=== PATIENT | male | born 1980 | race Caucasian/White ===

== ENCOUNTER 2016-12-02 02:47 | Outpatient (CLI) | payer OTHER | END 2016-12-02 02:48 | disposition critical access hospital (66) | LOC: EMS 02:47 | PROVIDERS: ATTEND Surgery | DX: S51.811A Laceration without foreign body of right forearm, initial encounter (principal); X78.9XXA Intentional self-harm by unspecified sharp object, initial encounter | CPT/HCPCS: A0425; A0429 ==

== ENCOUNTER 2016-12-02 03:03 | Emergency (ER) | payer OTHER ==
[2016-12-02 03:24] LABS: BASOPHILS % (AUTO) 0.4 %; EOSINOPHILS # (AUTO) 0.1 10^3/uL (0.0-0.7); EOSINOPHILS % (AUTO) 1.6 %; HCT - HEMATOCRIT 43.5 % (42.0-52.0); HGB - HEMOGLOBIN 14.9 g/dL (14.0-18.0); LYMPHOCYTES # (AUTO) 2.6 10^3/uL (1.5-3.5); LYMPHOCYTES % (AUTO) 32.7 %; MEAN CORPUSCULAR HEMOGLOBIN 30.1 pg (27.0-31.0); MEAN CORPUSCULAR HGB CONC 34.3 g/dL (32.0-36.0); MEAN CORPUSCULAR VOLUME 87.9 fL (80.0-94.0); MEAN PLATELET VOLUME 8.5 fL (7.4-11.4); MONOCYTES # (AUTO) 0.6 10^3/uL (0.0-1.0); MONOCYTES % (AUTO) 6.9 %; NEUTROPHILS # (AUTO) 4.7 10^3/uL (1.5-6.6); NEUTROPHILS % (AUTO) 58.4 %; RED BLOOD COUNT 4.95 10^6/uL (4.70-6.10); RED CELL DISTRIBUTION WIDTH 13.4 % (12.0-15.0); UNCORRECTED WHITE BLOOD COUNT 8.1 x10^3/uL; WHITE BLOOD COUNT 8.1 x10^3/uL (4.8-10.8)
[2016-12-02 03:27] LABS: BILIRUBIN,URINE NEGATIVE (NEGATIVE)
[2016-12-02 03:28] LABS: UA CHARGE (STRIP ONLY) YES; UR CULTURE IF IND NOT INDICATED
[2016-12-02 03:38] LABS: ACETAMINOPHEN < 10 ug/mL (10-30); ALBUMIN/GLOBULIN RATIO 1.3 (1.0-2.2); BILIRUBIN,TOTAL 0.5 mg/dL (0.2-1.0); BUN - BLOOD UREA NITROGEN 11 mg/dL (6-20); CALCIUM 9.2 mg/dL (8.5-10.3); CARBON DIOXIDE - CO2 21 mmol/L (21-32); CHLORIDE 105 mmol/L (101-111); CREATININE 0.9 mg/dL (0.6-1.2); GFR - MDRD 95 (>89); GLUCOSE 104 mg/dL (70-100); LIPASE 31 U/L (22-51); POTASSIUM 3.7 mmol/L (3.5-5.0); SALICYLATE < 6.0 mg/dL; SODIUM 141 mmol/L (135-145); TOTAL PROTEIN 8.1 g/dL (6.7-8.2)
--- NOTE | 2016-12-02 04:02 | ED Physician Documentation ---
PD HPI MHE - Stated complaint Stated Complaint: ARM LACS - Chief complaint Chief Complaint: MHE - History obtained from History obtained from: Patient, EMS - History of Present Illness Primary symptom: Suicidal ideation, Self harm - cut, Aggressive behavior Timing - onset: Today Contributing factors: Substance abuse - ETOH Similar symptoms before: Work up / diagnostics Recently seen: Not recently seen - Additional information Additional information: Patient is a 36 year old male with a history of depression and anxiety who is presenting to the emergency department for depression, agitation and superficial cutting of his arm. According to patient and ems patient cut his arm multiple times then walked out of his house. police and ems was called. Patient was brought to the emergency department. patient states that he has been drinking and that it is just a very bad day, the worst day, but doesnt want to elaborate. Patient states that things have been messed up since the [facility] [place] PD PAST MEDICAL HISTORY - Past Medical History Past Medical History: Yes Cardiovascular: Hypertension Respiratory: None Neuro: None Endocrine/Autoimmune: None GI: None : None HEENT: None Psych: Post traumatic stress disorder Musculoskeletal: None Derm: None - Past Surgical History Past Surgical History: No - Present Medications Home Medications: Ambulatory Orders Medication Instructions Recorded Confirmed Divalproex Sodium [Depakote ER] 500 mg PO DAILY 12/02/16 12/02/16 Prazosin [Minipress] 1 mg PO DAILY 12/02/16 12/02/16 Venlafaxine HCl [Effexor Xr] 150 mg PO DAILY 12/02/16 12/02/16 - Allergies Allergies/Adverse Reactions: Allergies Allergy/AdvReac Type Severity Reaction Status Date / Time sertraline HCl * Allergy Itching Verified 12/02/16 03:15 [From Zoloft] - Social History Does the pt smoke?: No Smoking Status: Never smoker Does the pt drink ETOH?: Yes Does the pt have substance abuse?: No - Immunizations Immunizations are current?: Yes PD ED PE NORMAL - Vitals Vital signs reviewed: Yes - General General: Alert and oriented X 3 - HEENT HEENT: Atraumatic, PERRL - Neck Neck: Supple, no meningeal sign - Cardiac Cardiac: RRR, No murmur - Respiratory Respiratory: No respiratory distress - Abdomen Abdomen: Non distended - Derm Derm: Normal color PD ED PE EXPANDED - Extremities Extremities: Right arm (three superficial cuts on the left arm) - Psych Psych: Depressed, Suicidal, Tearful Results - Vitals Vitals: Vital Signs - 24 hr 12/02/16 12/02/16 03:10 04:18 Temperature 37.2 C Heart Rate 98 108 H Respiratory 16 18 Rate Blood Pressure 144/110 H 141/101 H O2 Saturation 98 96 Oxygen O2 Source Room air - Labs Labs: Laboratory Tests 12/02/16 12/02/16 12/02/16 03:10 03:10 03:10 WBC 8.1 RBC 4.95 Hgb 14.9 Hct 43.5 MCV 87.9 MCH 30.1 MCHC 34.3 RDW 13.4 Plt Count 217 MPV 8.5 Neut # 4.7 Lymph # 2.6 [place] # 0.6 Eos # 0.1 Baso # 0.0 Absolute Nucleated RBC 0.00 Nucleated RBC % 0.0 Sodium 141 Potassium 3.7 Chloride 105 Carbon Dioxide 21 Anion Gap 15.0 H BUN 11 Creatinine 0.9 Estimated GFR (MDRD) 95 Glucose 104 H Calcium 9.2 Total Bilirubin 0.5 AST 22 ALT 19 Alkaline Phosphatase 59 Total Protein 8.1 Albumin 4.6 Globulin 3.5 Albumin/Globulin Ratio 1.3 Lipase 31 TSH 0.75 Urine Color Urine Clarity Urine pH Ur Specific [place] Urine Protein Urine Glucose (UA) Urine Ketones Urine Occult Blood Urine Nitrite Urine Bilirubin Urine Urobilinogen Ur Leukocyte Esterase Ur Microscopic Review Urine Culture Comments Salicylates < 6.0 Urine Opiates Screen Ur Oxycodone Screen Urine Methadone Screen Ur Propoxyphene Screen Acetaminophen < 10 L Ur Barbiturates Screen Ur Tricyclics Screen Ur Phencyclidine Scrn Ur Amphetamine Screen U Methamphetamines Scrn U Benzodiazepines Scrn Urine Cocaine Screen U Cannabinoids Screen Ethyl Alcohol 123.5 12/02/16 03:15 WBC RBC Hgb Hct MCV MCH MCHC RDW Plt Count MPV Neut # Lymph # [place] # Eos # Baso # Absolute Nucleated RBC Nucleated RBC % Sodium Potassium Chloride Carbon Dioxide Anion Gap BUN Creatinine Estimated GFR (MDRD) Glucose Calcium Total Bilirubin AST ALT Alkaline Phosphatase Total Protein Albumin Globulin Albumin/Globulin Ratio Lipase TSH Urine Color YELLOW Urine Clarity CLEAR Urine pH 6.0 Ur Specific [place] <=1.005 Urine Protein NEGATIVE Urine Glucose (UA) NEGATIVE Urine Ketones NEGATIVE Urine Occult Blood NEGATIVE Urine Nitrite NEGATIVE Urine Bilirubin NEGATIVE Urine Urobilinogen 0.2 (NORMAL) Ur Leukocyte Esterase NEGATIVE Ur Microscopic Review NOT INDICATED Urine Culture Comments NOT INDICATED Salicylates Urine Opiates Screen NEGATIVE Ur Oxycodone Screen NEGATIVE Urine Methadone Screen NEGATIVE Ur Propoxyphene Screen NEGATIVE Acetaminophen Ur Barbiturates Screen NEGATIVE Ur Tricyclics Screen NEGATIVE Ur Phencyclidine Scrn NEGATIVE Ur Amphetamine Screen NEGATIVE U Methamphetamines Scrn NEGATIVE U Benzodiazepines Scrn NEGATIVE Urine Cocaine Screen NEGATIVE U Cannabinoids Screen POSITIVE H Ethyl Alcohol PD MEDICAL DECISION MAKING - ED course Complexity details: reviewed old records, reviewed results, re-evaluated patient , considered differential, d/w patient ED course: Patient was seen and examined at bedside. Patient was moderately agitated. patient calmed down and was able to give a urine sample and labs were drawn. Patient did get agitated again and walked out of the ER. Patient was found and brought back to the emergency department. patient was treated with 0.5mg of ativan. Patient calmed down and stated that he wanted to speak with someone. Patient was medically cleared and signed over to Dr. Gayle pending social work evaluation and disposition.
[2016-12-02] MEDS ORDERED: LORazepam 0.5 MG TABLET PO STA ×2 (04:11→18:58)
[2016-12-02] MEDS ORDERED: LORazepam 0.5 MG TABLET ONE (04:18)
[2016-12-02 11:02] VITALS: BP 114/77
--- NOTE | 2016-12-02 18:59 | ED Physician Documentation ---
ED Addendum - Addendum Addendum: 12/02/16 18:59 Per the social work nurse he was initially willing to go to [place], the [facility] did not have staff to accept him tonight. After arrangements were made for that the patient changed his mind, now [facility] point. 12/02/16 19:34 Patient change his mind after his arrived and wanted to go home. He was personally reassessed and says he is not suicidal, has no plan. The plans to watch him at home and [facility]. Given the impression of the social work nurse he did sign out AGAINST MEDICAL ADVICE, however I do feel after my evaluation that he is likely safe tonight and has contracted for safety.
== END 2016-12-02 19:40 | disposition left against medical advice (07) ==
LOC: ED 03:03
DX: F32.9 Major depressive disorder, single episode, unspecified (principal); F41.9 Anxiety disorder, unspecified; R45.1 Restlessness and agitation; S41.112A Laceration without foreign body of left upper arm, initial encounter; X78.9XXA Intentional self-harm by unspecified sharp object, initial encounter; Y92.009 Unspecified place in unspecified non-institutional (private) residence as the place of occurrence of the external cause; F10.10 Alcohol abuse, uncomplicated; F43.10 Post-traumatic stress disorder, unspecified; I10 Essential (primary) hypertension; Z53.20 Procedure and treatment not carried out because of patient's decision for unspecified reasons
CPT/HCPCS: 36415; 80053; 80306; 80307; 80320; 80329; 81003; 83690; 84443; 85025; 99283; A9270; 81001; 87086

== ENCOUNTER 2017-03-08 05:14 | Emergency (ER) | payer OTHER ==
--- NOTE | 2017-03-08 05:20 | ED Physician Documentation ---
PD HPI MHE - Stated complaint Stated Complaint: MHE - Chief complaint Chief Complaint: MHE - History obtained from History obtained from: Patient, Police - History of Present Illness Primary symptom: Suicidal ideation, Depression, Out of meds Timing - onset: Today Contributing factors: Sig other, Substance abuse - ETOH, Off meds Similar symptoms before: Work up / diagnostics, Treatment Recently seen: Not recently seen - Additional information Additional information: Patient is a 37 year old male with a history of depression who is presenting to the emergency department for depression and suicidal ideation. patient drank a few drinks tonight and got in an argument with his significant other . patient states that he was going to hurt himself by using a knife so police were called. when police came he was cooperative and gave up his knife and came in voluntarily. Patient states that [facility] so he has not had his prozac for months. Review of Systems Unable to obtain: Intoxicated PD PAST MEDICAL HISTORY - Past Medical History Cardiovascular: Hypertension Respiratory: None Neuro: None Endocrine/Autoimmune: None GI: None : None HEENT: None Psych: Post traumatic stress disorder Musculoskeletal: None Derm: None - Past Surgical History Past Surgical History: No - Present Medications Home Medications: Ambulatory Orders Medication Instructions Recorded Confirmed Divalproex Sodium [Depakote ER] 500 mg PO DAILY 12/02/16 03/08/17 Prazosin [Minipress] 1 mg PO DAILY 12/02/16 03/08/17 FLUoxetine [PROzac] 40 mg ORAL DAILY 03/08/17 03/08/17 Quetiapine Fumarate [Quetiapine 200 mg ORAL DAILY 03/08/17 03/08/17 Fumarate ER] - Allergies Allergies/Adverse Reactions: Allergies Allergy/AdvReac Type Severity Reaction Status Date / Time sertraline HCl * Allergy Itching Verified 03/08/17 05:16 [From Zoloft] - Social History Does the pt smoke?: No Smoking Status: Never smoker Does the pt drink ETOH?: Yes Does the pt have substance abuse?: No - Immunizations Immunizations are current?: Yes PD ED PE NORMAL - HEENT HEENT: Atraumatic, PERRL - Neck Neck: Supple, no meningeal sign - Cardiac Cardiac: RRR - Respiratory Respiratory: No respiratory distress - Abdomen Abdomen: Non distended - Derm Derm: Normal color, No rash - Extremities Extremities: No deformity, Normal ROM s pain, No calf tenderness / cord - Neuro Neuro: No motor deficit, Normal speech Eye Opening: Spontaneous Motor: Obeys Commands Verbal: Oriented GCS Score: 15 PD ED PE EXPANDED - General General: Alert - Psych Psych: Intoxicated / AOB, Depressed, Suicidal, Tearful Results - Vitals Vitals: Vital Signs - 24 hr 03/08/17 05:11 Temperature 36.6 C Heart Rate 104 H Respiratory 18 Rate Blood Pressure 125/79 O2 Saturation 96 Oxygen O2 Source Room air - Labs Labs: Laboratory Tests 03/08/17 03/08/17 03/08/17 05:23 05:39 05:39 WBC 5.1 RBC 4.75 Hgb 14.1 Hct 42.6 MCV 89.6 MCH 29.6 MCHC 33.0 RDW 13.9 Plt Count 251 MPV 7.9 Neut # 3.1 Lymph # 1.5 [place] # 0.4 Eos # 0.1 Baso # 0.0 Absolute Nucleated RBC 0.01 Nucleated RBC % 0.1 Sodium 137 Potassium 3.6 Chloride 104 Carbon Dioxide 21 Anion Gap 12.0 BUN 16 Creatinine 0.8 Estimated GFR (MDRD) 108 Glucose 106 H Calcium 9.1 Total Bilirubin 0.3 AST 26 ALT 27 Alkaline Phosphatase 67 Total Protein 7.8 Albumin 4.6 Globulin 3.2 Albumin/Globulin Ratio 1.4 Lipase 22 TSH Urine Opiates Screen NEGATIVE Ur Oxycodone Screen NEGATIVE Urine Methadone Screen NEGATIVE Ur Propoxyphene Screen NEGATIVE Ur Barbiturates Screen NEGATIVE Ur Tricyclics Screen NEGATIVE Ur Phencyclidine Scrn NEGATIVE Ur Amphetamine Screen NEGATIVE U Methamphetamines Scrn NEGATIVE U Benzodiazepines Scrn NEGATIVE Urine Cocaine Screen NEGATIVE U Cannabinoids Screen NEGATIVE Ethyl Alcohol 111.0 03/08/17 05:39 WBC RBC Hgb Hct MCV MCH MCHC RDW Plt Count MPV Neut # Lymph # [place] # Eos # Baso # Absolute Nucleated RBC Nucleated RBC % Sodium Potassium Chloride Carbon Dioxide Anion Gap BUN Creatinine Estimated GFR (MDRD) Glucose Calcium Total Bilirubin AST ALT Alkaline Phosphatase Total Protein Albumin Globulin Albumin/Globulin Ratio Lipase TSH 0.83 Urine Opiates Screen Ur Oxycodone Screen Urine Methadone Screen Ur Propoxyphene Screen Ur Barbiturates Screen Ur Tricyclics Screen Ur Phencyclidine Scrn Ur Amphetamine Screen U Methamphetamines Scrn U Benzodiazepines Scrn Urine Cocaine Screen U Cannabinoids Screen Ethyl Alcohol PD MEDICAL DECISION MAKING - ED course Complexity details: reviewed old records, reviewed results, re-evaluated patient , considered differential, d/w patient ED course: Patient was seen and examined at bedside. patient was cooperative but tearful and agitated. labs were drawn and urine was collected. patient was treated with zyprexa 5mg. patient was voluntary. Patient was signed over to the morning team pending social work and disposition. Departure - Departure Clinical Impression: Depression, Alcoholic intoxication Condition: Stable Instructions: ED Stress React
[2017-03-08 05:27] LABS: MUDS CUTOFF CONCENTRATIONS CUTOFF CONC BELOW:
[2017-03-08] MEDS ORDERED: OLANZapine ODT 5 MG TABLET TL ONE (05:31)
[2017-03-08 05:43] LABS: AMPHETAMINE SCREEN,URINE NEGATIVE (NEGATIVE); BENZODIAZEPINES SCREEN, URINE NEGATIVE (NEGATIVE); COCAINE SCREEN URINE NEGATIVE (NEGATIVE); METHADONE SCREEN, URINE NEGATIVE (NEGATIVE); METHAMPHETAMINES SCREEN, URINE NEGATIVE (NEGATIVE); OPIATE SCREEN, URINE NEGATIVE (NEGATIVE); OXYCODONE SCREEN, URINE NEGATIVE (NEGATIVE); PROPOXYPHENE SCREEN, URINE NEGATIVE (NEGATIVE); TRICYCLIC ANTIDEPRESSANT,URINE NEGATIVE (NEGATIVE)
[2017-03-08 05:45] LABS: BASOPHILS % (AUTO) 0.5 %; EOSINOPHILS # (AUTO) 0.1 10^3/uL (0.0-0.7); EOSINOPHILS % (AUTO) 1.1 %; HGB - HEMOGLOBIN 14.1 g/dL (14.0-18.0); LYMPHOCYTES # (AUTO) 1.5 10^3/uL (1.5-3.5); LYMPHOCYTES % (AUTO) 29.6 %; MEAN CORPUSCULAR HEMOGLOBIN 29.6 pg (27.0-31.0); MEAN CORPUSCULAR VOLUME 89.6 fL (80.0-94.0); MEAN PLATELET VOLUME 7.9 fL (7.4-11.4); MONOCYTES # (AUTO) 0.4 10^3/uL (0.0-1.0); MONOCYTES % (AUTO) 7.2 %; NEUTROPHILS # (AUTO) 3.1 10^3/uL (1.5-6.6); NEUTROPHILS % (AUTO) 61.6 %; PLT - PLATELET COUNT 251 10^3/uL (130-450); RED BLOOD COUNT 4.75 10^6/uL (4.70-6.10); RED CELL DISTRIBUTION WIDTH 13.9 % (12.0-15.0); WHITE BLOOD COUNT 5.1 x10^3/uL (4.8-10.8)
[2017-03-08 05:59] LABS: ALBUMIN 4.6 g/dL (3.2-5.5); ALBUMIN/GLOBULIN RATIO 1.4 (1.0-2.2); BILIRUBIN,TOTAL 0.3 mg/dL (0.2-1.0); CALCIUM 9.1 mg/dL (8.5-10.3); CREATININE 0.8 mg/dL (0.6-1.2); TOTAL PROTEIN 7.8 g/dL (6.7-8.2)
--- NOTE | 2017-03-08 10:46 | ED Physician Documentation ---
PD HPI MHE - Stated complaint Stated Complaint: MHE - Chief complaint Chief Complaint: MHE PD PAST MEDICAL HISTORY - Past Medical History Past Medical History: Yes Cardiovascular: Hypertension Respiratory: None Neuro: None Endocrine/Autoimmune: None GI: None : None HEENT: None Psych: Post traumatic stress disorder Musculoskeletal: None Derm: None - Past Surgical History Past Surgical History: No - Present Medications Home Medications: Ambulatory Orders Medication Instructions Recorded Confirmed Divalproex Sodium [Depakote ER] 500 mg PO DAILY 12/02/16 03/08/17 Prazosin [Minipress] 1 mg PO DAILY 12/02/16 03/08/17 FLUoxetine [PROzac] 10 mg PO DAILY #7 capsule 03/08/17 FLUoxetine [PROzac] 40 mg ORAL DAILY 03/08/17 03/08/17 Quetiapine Fumarate [Quetiapine 200 mg ORAL DAILY 03/08/17 03/08/17 Fumarate ER] - Allergies Allergies/Adverse Reactions: Allergies Allergy/AdvReac Type Severity Reaction Status Date / Time sertraline HCl * Allergy Itching Verified 03/08/17 05:16 [From Zoloft] - Social History Does the pt smoke?: No Smoking Status: Never smoker Does the pt drink ETOH?: Yes Does the pt have substance abuse?: No - Immunizations Immunizations are current?: Yes - POLST Patient has POLST: No Results - Vitals Vitals: Oxygen O2 Source Room air - Labs Labs: Laboratory Tests 03/08/17 03/08/17 03/08/17 05:23 05:39 05:39 WBC 5.1 RBC 4.75 Hgb 14.1 Hct 42.6 MCV 89.6 MCH 29.6 MCHC 33.0 RDW 13.9 Plt Count 251 MPV 7.9 Neut # 3.1 Lymph # 1.5 [place] # 0.4 Eos # 0.1 Baso # 0.0 Absolute Nucleated RBC 0.01 Nucleated RBC % 0.1 Sodium 137 Potassium 3.6 Chloride 104 Carbon Dioxide 21 Anion Gap 12.0 BUN 16 Creatinine 0.8 Estimated GFR (MDRD) 108 Glucose 106 H Calcium 9.1 Total Bilirubin 0.3 AST 26 ALT 27 Alkaline Phosphatase 67 Total Protein 7.8 Albumin 4.6 Globulin 3.2 Albumin/Globulin Ratio 1.4 Lipase 22 TSH Urine Opiates Screen NEGATIVE Ur Oxycodone Screen NEGATIVE Urine Methadone Screen NEGATIVE Ur Propoxyphene Screen NEGATIVE Ur Barbiturates Screen NEGATIVE Ur Tricyclics Screen NEGATIVE Ur Phencyclidine Scrn NEGATIVE Ur Amphetamine Screen NEGATIVE U Methamphetamines Scrn NEGATIVE U Benzodiazepines Scrn NEGATIVE Urine Cocaine Screen NEGATIVE U Cannabinoids Screen NEGATIVE Ethyl Alcohol 111.0 03/08/17 03/08/17 05:39 10:34 WBC RBC Hgb Hct MCV MCH MCHC RDW Plt Count MPV Neut # Lymph # [place] # Eos # Baso # Absolute Nucleated RBC Nucleated RBC % Sodium Potassium Chloride Carbon Dioxide Anion Gap BUN Creatinine Estimated GFR (MDRD) Glucose Calcium Total Bilirubin AST ALT Alkaline Phosphatase Total Protein Albumin Globulin Albumin/Globulin Ratio Lipase TSH 0.83 Urine Opiates Screen Ur Oxycodone Screen Urine Methadone Screen Ur Propoxyphene Screen Ur Barbiturates Screen Ur Tricyclics Screen Ur Phencyclidine Scrn Ur Amphetamine Screen U Methamphetamines Scrn U Benzodiazepines Scrn Urine Cocaine Screen U Cannabinoids Screen Ethyl Alcohol < 5.0 PD MEDICAL DECISION MAKING - ED course Complexity details: re-evaluated patient ED course: The patient's care was signed out to me at change of shift pending evaluation by medical billing supervisor. Please see Dr. Love's report for the patient's initial presentation and evaluation. commissary worker was able to arrange for outpatient follow-up for the patient. He is being discharged to the crisis bed, with prescription for fluoxetine, one weeks supply. Departure - Departure Disposition: 01 Home, Self Care Clinical Impression: Depression, Alcoholic intoxication Condition: Stable Instructions: ED Stress React Follow-Up: Margot Azar PA [Physician No Access] - Prescriptions: FLUoxetine [PROzac] 10 mg PO DAILY #7 capsule Comments: Follow up with your case advocate as per the medical billing supervisor. Refrain from alcohol. Take Prozac daily as prescribed. Return to the emergency department if you develop increasing suicidal ideation, or otherwise worsening symptoms. Discharge Date/Time: 03/08/17 11:30
[2017-03-08 11:32] VITALS: BP 144/85
== END 2017-03-08 11:30 | disposition home or self-care (01) ==
LOC: EDUNIT# → ED 05:14
DX: F32.9 Major depressive disorder, single episode, unspecified (principal); F10.129 Alcohol abuse with intoxication, unspecified; I10 Essential (primary) hypertension
CPT/HCPCS: 36415; 80053; 80306; 80320; 83690; 84443; 85025; 99283; 99284; A9270